=== PATIENT | female | born 1990 | race Caucasian/White ===

== ENCOUNTER 2021-02-13 17:46 | Emergency (ER) | payer OTHER, BC ==
[~2021-02-13] VITALS: Ht 157.5 cm; Wt 72.6 kg
[~2021-02-13 17:46] MED LIST: ALPR.25 PO; Adipex-P37.5 MG PO; CYCL10 PO; HYDACE5 PO; IBUP400 PO; NAPR220 PO; ONDA4 PO; PROM25 PO; Percocet 5-3251 EACH PO; Zofran Odt8 MG PO
[2021-02-15 07:09] LABS: HIV SCREEN 4TH GENERATION WRFX Non Reactive (Non Reactive)
[2021-02-15 08:09] LABS: HCV ANTIBODY <0.1 (0.0-0.9)
== END 2021-02-13 18:43 | disposition home or self-care (01) ==
LOC: ER 17:46
PROVIDERS: Physician Assistant
DX: S61.231A Puncture wound without foreign body of left index finger without damage to nail, initial encounter (principal); Z87.891 Personal history of nicotine dependence; Z79.899 Other long term (current) drug therapy; W46.1XXA Contact with contaminated hypodermic needle, initial encounter
CPT/HCPCS: 36415; 84460; 86317; 86703; 86803; 87340; 87389; 99282

== ENCOUNTER 2022-06-16 05:35 | Inpatient (IN) | payer OTHER ==
[~2022-06-16] VITALS: Ht 160 cm; Wt 105.0 kg
[2022-06-16] MEDS ORDERED: FERSU300 PO (06:15)
[2022-06-16 06:42] LABS: BASOPHILS ABSOLUTE AUTO 0.05 K/mm3 (0.00-0.23); BASOPHILS PERCENT AUTO 0 % (0-2); EOSINOPHILS ABSOLUTE AUTO 0.07 K/mm3 (0.00-0.68); EOSINOPHILS PERCENT AUTO 1 % (0-6); Hematocrit 31.4 % (33.0-51.0); Hemoglobin 10.4 g/dL (11.5-16.0); IMMATURE GRAN ABSOLUTE AUTO 0.04 K/mm3 (0.00-0.10); IMMATURE GRAN PERCENT AUTO 0 % (0-1); LYMPHOCYTES ABSOLUTE AUTO 2.04 K/mm3 (0.84-5.20); LYMPHOCYTES PERCENT AUTO 18 % (21-46); MONOCYTES ABSOLUTE AUTO 0.76 K/mm3 (0.16-1.47); MONOCYTES PERCENT AUTO 7 % (4-13); Mean Corpuscular HGB 25.7 pg (26.0-34.0); Mean Corpuscular HGB Conc 33.1 g/dL (31.5-36.5); Mean Corpuscular Volume 78 fL (80-100); Mean Platelet Volume 11.1 fL (9.1-12.4); NEUTROPHILS ABSOLUTE AUTO 8.17 K/mm3 (1.96-9.15); NEUTROPHILS PERCENT AUTO 74 % (41-73); Platelet Count 229 K/mm3 (150-400); RDW Coefficient Variation 14.1 % (11.7-14.2); RDW Standard Deviation 39.8 fL (35.1-46.3); Red Blood Cell Count 4.04 M/mm3 (3.80-5.20); White Blood Cell Count 11.13 K/mm3 (4.00-11.30)
[2022-06-16 08:32] LABS: PCO2 Cord - Arterial 58.7 mmHg (40-50); PO2 Cord - Arterial < 14 mmHg (16-20); pH Cord - Arterial 7.23 (7.28-7.35)
[2022-06-16 08:35] LABS: PCO2 Cord - Venous 52.9 mmHg (40-50); PO2 Cord - Venous 25.2 mmHg (28-32); pH Umbilical Cord - Venous 7.29 (7.26-7.35)
--- NOTE | 2022-06-16 08:37 | NUR ---
06/16/22 0837 Lisha Elizabeth LIVE MALE BY REPEAT SECTION. 04/28 WEIGHT 4315 LENGTH 20.5 HEAD 15 CHEST 14 BILATERAL SALPINGECTOMY, SPECIMENS SENT TO LAB
[2022-06-16] MEDS ORDERED: ENOX80I SC (10:35)
[2022-06-16] MEDS ORDERED: Percocet 5-3251 EACH PO (10:36)
[2022-06-16] MEDS ORDERED: IBUP800 PO (10:36)
[2022-06-17 05:56] LABS: BASOPHILS ABSOLUTE AUTO 0.05 K/mm3 (0.00-0.23); BASOPHILS PERCENT AUTO 0 % (0-2); EOSINOPHILS ABSOLUTE AUTO 0.11 K/mm3 (0.00-0.68); EOSINOPHILS PERCENT AUTO 1 % (0-6); Hematocrit 26.9 % (33.0-51.0); Hemoglobin 8.5 g/dL (11.5-16.0); IMMATURE GRAN ABSOLUTE AUTO 0.08 K/mm3 (0.00-0.10); IMMATURE GRAN PERCENT AUTO 1 % (0-1); LYMPHOCYTES ABSOLUTE AUTO 2.84 K/mm3 (0.84-5.20); LYMPHOCYTES PERCENT AUTO 18 % (21-46); MONOCYTES ABSOLUTE AUTO 1.49 K/mm3 (0.16-1.47); MONOCYTES PERCENT AUTO 9 % (4-13); Mean Corpuscular HGB 25.1 pg (26.0-34.0); Mean Corpuscular HGB Conc 31.6 g/dL (31.5-36.5); Mean Corpuscular Volume 80 fL (80-100); Mean Platelet Volume 11.1 fL (9.1-12.4); NEUTROPHILS ABSOLUTE AUTO 11.59 K/mm3 (1.96-9.15); NEUTROPHILS PERCENT AUTO 72 % (41-73); Platelet Count 213 K/mm3 (150-400); RDW Standard Deviation 40.3 fL (35.1-46.3); Red Blood Cell Count 3.38 M/mm3 (3.80-5.20); White Blood Cell Count 16.16 K/mm3 (4.00-11.30)
--- NOTE | 2022-06-17 09:56 | NUR ---
ASSUMED CARE REPT FROM Denilson MARCIAL RN
--- NOTE | 2022-06-17 14:27 | NUR ---
PT UP AMBULATING TO OUTSIDE
--- NOTE | 2022-06-17 14:47 | NUR ---
PATIENT UP WALKING LY TO GET WATER.
--- NOTE | 2022-06-17 15:26 | NUR ---
REPT TO Orion MIRANDA RN
--- NOTE | 2022-06-18 11:00 | NUR ---
dc instructions given. has post op appt scheduled with mildred. will follow up sunday at 1100 am for ppfu at [facility], lila sent with patient. has prescriptions for lovenox and pain meds. will call with any questions or go to er if an emergency.
--- NOTE | 2022-06-20 15:12 | NUR ---
UPDATED CHARTING SURGICAL CHECKLIST PER EMR/RN
== END 2022-06-18 11:45 | disposition home or self-care (01) | DRG 785 ==
LOC: BC 05:35
PROVIDERS: Obstetrics & Gynecology; ADMIT Nurse Practitioner Obstetrics & Gynecology
PROC: 10D00Z1 Extraction of Products of Conception, Low, Open Approach (ICD-10-PCS; principal; 2022-06-16 07:30)
PROC: 0UT70ZZ Resection of Bilateral Fallopian Tubes, Open Approach (ICD-10-PCS; 2022-06-16 07:30)
DX: O34.211 Maternal care for low transverse scar from previous cesarean delivery (principal); Z30.2 Encounter for sterilization; Z37.0 Single live birth; Z67.40 Type O blood, Rh positive; Z98.84 Bariatric surgery status; Z3A.39 39 weeks gestation of pregnancy
CPT/HCPCS: 36415; 82803; 85025; 86850; 86900; 86901; 88302; A9270; J0690; J1100; J1650; J1885; J2405; J2765; J3010; J7120

== ENCOUNTER → 2024-02-26 | Outpatient (CLI) | payer BC, OTHER ==
[~2024-02-26] MED LIST changes: +ENOX80I SC; +FERSU300 PO; +IBUP800 PO
[2024-03-01 18:38] LABS: HPV HIGH RISK BY TMA Not Detected; HPV SOURCE Cervical/Vag
== END ==
LOC: LAB SHORT 10:07 → LAB 10:07
PROVIDERS: Obstetrics & Gynecology
DX: Z01.419 Encounter for gynecological examination (general) (routine) without abnormal findings (principal)
CPT/HCPCS: 87624; G0123